=== PATIENT | male | born 1985 | race Caucasian/White ===

== ENCOUNTER 2016-10-11 10:53 | Emergency (ER) | payer OTHER ==
[~2016-10-11] VITALS: Ht 185.4 cm; Wt 151.2 kg
[2016-10-11 13:20] LABS: CALCIUM 8.6 mg/dL (8.5-10.1); CARBON DIOXIDE 26.3 mmol/L (21-32); CHLORIDE SERUM 109 mmol/L (98-107); CREATININE SERUM 1.1 mg/dL (0.7-1.3); GFR1 > 60 mL/min; GLUCOSE SERUM 96 mg/dL (74-106); SODIUM SERUM 144 mmol/L (136-145)
[2016-10-11 14:06] VITALS: BP 131/84
== END 2016-10-11 14:07 | disposition home or self-care (01) ==
LOC: ED 10:53
PROVIDERS: Emergency Medicine
DX: I82.432 Acute embolism and thrombosis of left popliteal vein (principal)
CPT/HCPCS: Q0092

== ENCOUNTER 2016-10-29 08:41 | Emergency (ER) | payer OTHER ==
[~2016-10-29] VITALS: Ht 185.4 cm; Wt 152.9 kg
[2016-10-29 08:49] VITALS: BP 127/62
== END 2016-10-29 09:22 | disposition home or self-care (01) ==
LOC: ED 08:41
DX: H00.015 Hordeolum externum left lower eyelid (principal)